=== PATIENT | male | born 1965 | race Caucasian/White ===

== ENCOUNTER 2019-06-17 13:13 | Emergency (ER) | payer OTHER ==
--- NOTE | 2019-06-17 13:53 | RAD ---
XR Knee Rt 4 View STANDARD HISTORY: Injury, right knee pain FINDINGS: No fracture or dislocation is identified.
== END 2019-06-17 14:00 | disposition home or self-care (01) ==
LOC: NAV ERS 13:13
DX: S83.91XA Sprain of unspecified site of right knee, initial encounter (principal); I10 Essential (primary) hypertension; X50.1XXA Overexertion from prolonged static or awkward postures, initial encounter

== ENCOUNTER 2020-07-16 17:43 | Emergency (ER) | payer BC, OTHER | END 2020-07-16 18:25 | disposition home or self-care (01) | LOC: NAV ERS 17:43 | DX: S83.91XA Sprain of unspecified site of right knee, initial encounter (principal); X50.1XXA Overexertion from prolonged static or awkward postures, initial encounter ==